=== PATIENT | male | born 1970 | race Caucasian/White ===

== ENCOUNTER 2017-05-19 14:14 | Emergency (ER) | payer OTHER ==
--- NOTE | 2017-05-23 16:46 | ER ---
ADMIT: 05/19/2017 RM/LOC: ER [facility] MR#: [id number] [address] [id number] DIONTE CARRILLO [address] [place] [address] Emergency Room Report SEX: M AGE: 47 : 1970 DATE: 05/19/2017 CHIEF COMPLAINT: Cut right small finger. HISTORY OF PRESENT ILLNESS: A 47-year-old male presents after sustaining a laceration at home working on a metal trailer. States he was moving a piece of metal when it sliced his fifth right finger. This occurred just prior to arrival. Mild amount of pain. No pain with movement. Otherwise, feels well today. No chronic diseases. No allergies to medications. COURSE IN THE EMERGENCY ROOM: The patient is seen and examined. Afebrile and nontoxic. No acute distress. PHYSICAL EXAMINATION: Shows a 1.5 cm laceration on the lateral aspect of the right fifth finger. Neurovascularly, he is intact to light touch. He has brisk capillary refill. Radial pulses equal compared bilaterally. Tendon function is normal. No other injuries noted on exam. PROCEDURE NOTE: A 1.5 cm linear laceration on the right fifth finger. Cleaned with Ultradex. Anesthetized using 5 mL lidocaine in a digital block fashion. After anesthesia was achieved, it was thoroughly cleaned with Betadine, irrigated with saline, and explored to the base. No obvious foreign bodies identified. Repaired using five 5-0 Prolene sutures. Wound edges were well everted. He was dressed in a sterile dressing. IMPRESSION: Right fifth digit laceration. DISPOSITION: The patient discharged to home. Follow up with primary care in 7 days to have sutures removed. Monitor infection. Follow up sooner as needed. Do not submerge until sutures are out. Keep clean, dry, and covered. Tetanus is up-to-date today. Questions sought and answered to the best of my ability and to the patient's satisfaction. Discharged in stable condition. SONIA Damon / Josemanuel Avalos MD / denisha JOB #: [id number] CC: Josemanuel Avalos MD, Attending Physician Chau Robb MD, Family Physician
== END 2017-05-19 15:00 | disposition home or self-care (01) ==
LOC: ER 14:14
PROC: 0HQFXZZ Repair Right Hand Skin, External Approach (ICD-10-PCS; principal; 2017-05-19)
DX: S61.216A Laceration without foreign body of right little finger without damage to nail, initial encounter (principal); W45.8XXA Other foreign body or object entering through skin, initial encounter; Y92.009 Unspecified place in unspecified non-institutional (private) residence as the place of occurrence of the external cause